=== PATIENT | female | born 1980 | race Caucasian/White ===

== ENCOUNTER → 2020-09-28 | Day surgery (SDC) | payer OTHER ==
[~2020-09-28] VITALS: Ht 172.7 cm; Wt 81.6 kg
[~2020-09-28] MED LIST: PERCOCET 5-3251 EACH PO
[2020-09-28 08:11] LABS: HCG (URINE) SCREEN NEGATIVE (NEGATIVE)
[2020-09-28 08:43] LABS: HCT 34.3 % (37.0-47.0); HGB 11.2 g/dl (12.5-16.0); MCH 28.4 pg (25.0-31.0); MCHC 32.7 g/dL (32.0-36.0); MCV 86.8 fL (78.0-100.0); MPV 9.8 fL (6.0-9.5); RBC 3.95 M/uL (4.20-5.40); RDW 14.7 % (11.5-14.0); WBC 5.7 K/uL (4.0-10.5)
== END | disposition home or self-care (01) ==
LOC: FAS 07:30
PROVIDERS: Obstetrics & Gynecology
DX: N85.8 Other specified noninflammatory disorders of uterus (principal); N92.0 Excessive and frequent menstruation with regular cycle; N93.9 Abnormal uterine and vaginal bleeding, unspecified; N94.6 Dysmenorrhea, unspecified; I10 Essential (primary) hypertension; F41.9 Anxiety disorder, unspecified; Z91.040 Latex allergy status; Z91.013 Allergy to seafood
CPT/HCPCS: 36415; 84703; 86850; 86900; 86901; J2250; J2704; J3010; J7120